=== PATIENT | male | born 1975 | race Hispanic/Latino ===

== ENCOUNTER 2018-03-01 12:53 | Emergency (ER) | payer SELFPAY ==
[2018-03-01] MEDS ORDERED: Morphine 4 MG/ML VIAL ONE (13:50)
== END 2018-03-01 14:15 | disposition home or self-care (01) ==
LOC: ERS 12:53
DX: M54.16 Radiculopathy, lumbar region (principal); F17.210 Nicotine dependence, cigarettes, uncomplicated; Z79.899 Other long term (current) drug therapy
CPT/HCPCS: 96372; J2270